=== PATIENT | male | born 1960 | race Caucasian/White ===

== ENCOUNTER 2018-09-30 12:30 | Emergency (ER) | payer OTHER ==
[~2018-09-30] VITALS: Ht 180.3 cm; Wt 105.8 kg
[2018-09-30 12:33] VITALS: BP 128/86
--- NOTE | 2018-09-30 12:54 | NUR ---
"I'M HAVING A HERPES OUTBREAK to groin, LASTING OVER 3 WEEKS NOW, MY PHYSICIAN FROM [facility] TOLD ME TO COME IN TO GET A PRESCRIPTION TO TREAT THIS, I THINK I TOOK VALT[facility] LAST TIME."
[2018-09-30] MEDS ORDERED: METF500T27 PO (13:02)
[2018-09-30] MEDS ORDERED: ASPI-496 PO (13:02)
== END 2018-09-30 13:05 | disposition home or self-care (01) ==
LOC: ED 12:59
DX: B37.9 Candidiasis, unspecified (principal); A60.00 Herpesviral infection of urogenital system, unspecified; E11.9 Type 2 diabetes mellitus without complications
CPT/HCPCS: 99283